=== PATIENT | male | born 1970 | race Two or more races ===

== ENCOUNTER 2024-12-12 09:16 | Inpatient (IN) | payer OTHER ==
[~2024-12-12] VITALS: Ht 162.6 cm; Wt 99.8 kg
--- NOTE | 2024-12-12 10:00 | NUR ---
PACIENTE EN COMPANIA DE ESPOSA SE PRESENTA A ER POR DOLOR EN EXTREMIDADES INFERIORES, PTE RECIENTEMENTE PRESENTA LACERACIONES EN AMBAS PIERNAS, LAS MISMAS SE OBERVAN EDEMATOSAS, FRIA AL TACTO Y DRENANDO LIQUIDO INTERSTICIAL. EL MISMO CON HX DE FALLO CARDIACO PRESENTA FALTA DE AIRE CON SAT 97%. SE MIDEN SIGNOS VITALES, SE PRESENTA A ALLY FERRO LA CUAL REFIERE QUE SEA ACOMODADO EN AREA DE OBSERVACION
[2024-12-12] MEDS ORDERED: DIPHENHYDRAMINE HCL 50 MG/ML VIAL 1ML ONE (10:56)
[2024-12-12] MEDS ORDERED: CEFTRIAXONE SODIUM 2,000 MG VIAL ONE (10:57)
[2024-12-12] MEDS ORDERED: METHYLPREDNISOLONE SOD SUCC 40 MG VIAL ONE (10:57)
[2024-12-12] MEDS ORDERED: DIPHENHYDRAMINE HCL 50 MG/ML VIAL 1ML IV ONE (11:00)
[2024-12-12] MEDS ORDERED: CEFTRIAXONE SODIUM 2,000 MG VIAL IV ONE (11:00)
[2024-12-12] MEDS ORDERED: METHYLPREDNISOLONE SOD SUCC 40 MG VIAL IV ONE (11:00)
[2024-12-12 12:37] LABS: BASO % 0.5 % (0.1-1.2); EOS # 0.04 (0.04-0.54); EOS % 0.4 % (0.7-7.0); LYMPH # 3.58 (1.18-3.74); LYMPH % 32.8 % (19.3-53.1); MEAN PLATELET VOLUME 9.90 fl (9.4-12.4); MONO # 0.70 (0.24-0.82); MONO % 6.4 % (4.7-12.5); NEUT # 6.50 (1.56-6.13); NEUT % 59.5 % (34.0-71.1); RED CELL DISTRIBUTION WIDTH 18.7 % (11.6-14.4)
[2024-12-12 12:43] LABS: ERYTHROCYTE SEDIMENTATION RATE 9 mm/hr (0-20)
[2024-12-12 13:04] LABS: INR 1.28
[2024-12-12 13:14] LABS: BUN CREA RATIO 25.0 (7.0-25.0); CREATININE SERUM 1.32 mg/dL (0.70-1.30); GFR 56.74; GLUCOSE FASTING 91.0 mg/dL (65-100); OSMOLALITY SERUM 286.0 MOSM/KG (275-295)
[2024-12-12] MEDS ORDERED: ACETAMINOPHEN 325 MG TABLET PO PRN (17:00)
[2024-12-12] MEDS ORDERED: PIPERACILLIN/TAZOBACTAM SODIUM 2.25 GM in DEXTROSE 5 % IN WATER 50 ML IV SCH (18:00)
[2024-12-12] MEDS ORDERED: ACETAMINOPHEN 500 MG GEL..CAP PO PRN (19:00)
[2024-12-12 19:31] VITALS: BP 170/85
[2024-12-12 20:19] LABS: URINE APPEARANCE Clear; URINE BILIRRUBIN Negative (NEGATIVE); URINE BLOOD Large; URINE COLOR Dark Yellow; URINE GLUCOSE Negative (NEGATIVE); URINE KETONE Negative (NEGATIVE); URINE LEUKOCYTE Moderate; URINE NITRATE Negative; URINE PROTEIN 30 (NEGATIVE); URINE UROBILINOGEN 1.0 E.U./dl
[2024-12-12 20:24] LABS: URINE BACTERIA 497.9 uL (0.0-1933); URINE CAST 8.50 uL (0.0-1.40); URINE EPITHELIAL CELLS 15.0 uL (0.0-38.8); URINE WBC 129.8 uL (0.0-23.2)
[2024-12-12 20:48] LABS: TYPE CELLS SQUAMOUS; URINE MUCUS SCANT
[2024-12-12 20:49] LABS: URINE SPERM FEW
[2024-12-12] MEDS ORDERED: VANCOMYCIN HCL 1,000 MG VIAL IV SCH (21:00)
[2024-12-12] MEDS ORDERED: CARVEDILOL 6.25 MG TABLET PO SCH (21:00)
[2024-12-13 00:46] VITALS: BP 119/85; O2SAT 98
[2024-12-13 07:32] LABS: BUN CREA RATIO 24.0 (7.0-25.0); CHOL HDL RATIO 4.1 (0-5.0); CREATININE SERUM 1.47 mg/dL (0.70-1.30); GFR 50.11; GLUCOSE FASTING 122.0 mg/dL (65-100); HDL 30.0 mg/dl (40-60); LDL 79.0 mg/dl (0-130); OSMOLALITY SERUM 295.0 MOSM/KG (275-295); TSH 0.621 uIU/mL (0.358-3.74); VLDL 13.0 (0-39)
[2024-12-13 08:53] VITALS: BP 90/62; O2SAT 98
[2024-12-13] MEDS ORDERED: SPIRONOLACTONE 25 MG TABLET PO SCH (09:00)
[2024-12-13] MEDS ORDERED: LOSARTAN POTASSIUM 25 MG TABLET PO SCH (09:00)
[2024-12-13] MEDS ORDERED: PANTOPRAZOLE SODIUM 40 MG/VIAL VIAL IV SCH (09:00)
[2024-12-13] MEDS ORDERED: ENOXAPARIN SODIUM 40 MG/0.4 ML SYRINGE SUBCUTANEO SCH (09:00)
[2024-12-13 13:30] VITALS: O2SAT 90
[2024-12-13] MEDS ORDERED: CEFEPIME HCL 2,000 MG VIAL IV SCH (17:00)
[2024-12-13 17:18] VITALS: O2SAT 97
[2024-12-13 17:44] VITALS: BP 106/80
[2024-12-13 22:09] VITALS: O2SAT 99
[2024-12-14] VITALS (9 sets, daily range): BP systolic 90–139; BP diastolic 50–85; O2SAT 97–98
[2024-12-14] MEDS ORDERED: VANCOMYCIN HCL 5 MG/ML REDILUIDO IV SCH (09:00)
[2024-12-14] MEDS ORDERED: AMIODARONE HCL 500 ML IV SCH (12:45)
[2024-12-14] MEDS ORDERED: CARVEDILOL 12.5 MG TABLET PO SCH (17:00)
[2024-12-14] MEDS ORDERED: APIXABAN 5 MG TABLET PO SCH (17:00)
[2024-12-14] MEDS ORDERED: AMIODARONE HCL 200 MG TABLET PO SCH (21:00)
[2024-12-15] VITALS (9 sets, daily range): BP systolic 95–99; BP diastolic 50–60; O2SAT 97–99
[2024-12-15] MEDS ORDERED: CARVEDILOL 25 MG TABLET PO SCH (09:00)
[2024-12-15] MEDS ORDERED: PANTOPRAZOLE SODIUM 40 MG TABLET.DR PO SCH (09:00)
[2024-12-15] MEDS ORDERED: SODIUM HYPOCHLORITE 1OZ TOP SCH ×2 (11:09→13:00)
[2024-12-15] MEDS ORDERED: AMINO ACIDS/PROTEIN HYDROLYS 30 ML BLIST.PACK PO SCH (17:00)
[2024-12-16] VITALS (8 sets, daily range): BP systolic 88–123; BP diastolic 51–77; O2SAT 95–99
[2024-12-16 08:38] LABS: BASO % 0.2 % (0.1-1.2); EOS # 0.10 (0.04-0.54); EOS % 1.0 % (0.7-7.0); LYMPH # 2.00 (1.18-3.74); LYMPH % 20.4 % (19.3-53.1); MEAN PLATELET VOLUME 10.90 fl (9.4-12.4); MONO # 0.75 (0.24-0.82); MONO % 7.6 % (4.7-12.5); NEUT # 6.89 (1.56-6.13); NEUT % 70.2 % (34.0-71.1); RED CELL DISTRIBUTION WIDTH 17.6 % (11.6-14.4)
[2024-12-16 09:13] LABS: ALT/SGPT 32.0 U/L (12-78); AST/SGOT 29.0 U/L (15-37); BILIRUBIN TOTAL 1.1 mg/dL (0.3-1.2); BUN CREA RATIO 46.0 (7.0-25.0); CREATININE SERUM 0.91 mg/dL (0.70-1.30); GFR 87.15; GLOBULINA 3.0 G/DL (2.4-3.5); GLUCOSE FASTING 76.0 mg/dL (65-100); OSMOLALITY SERUM 296.0 MOSM/KG (275-295)
[2024-12-16] MEDS ORDERED: MUPIROCIN 22 GM OINT..GM TUBE NASAL SCH (17:00)
[2024-12-17] VITALS (9 sets, daily range): BP systolic 94–130; BP diastolic 64–73; O2SAT 95–100
[2024-12-17] MEDS ORDERED: ALBUMIN HUMAN-25 0.25GM/ML (50ML) VIAL IV SCH (01:00)
[2024-12-17] MEDS ORDERED: ALBUMIN HUMAN 100 ML VIAL IV SCH (09:00)
[2024-12-17] MEDS ORDERED: VANCOMYCIN HCL 5 MG/ML REDILUIDO IV SCH (09:00)
[2024-12-17] MEDS ORDERED: CHLORHEXIDINE GLUCONATE 120 ML BOTTLE TOP SCH (09:00)
[2024-12-18] VITALS (9 sets, daily range): BP systolic 95–150; BP diastolic 69–85; O2SAT 95–99
[2024-12-18 06:13] LABS: BASO % 0.4 % (0.1-1.2); EOS # 0.16 (0.04-0.54); EOS % 1.8 % (0.7-7.0); LYMPH # 2.00 (1.18-3.74); LYMPH % 22.1 % (19.3-53.1); MEAN PLATELET VOLUME 10.70 fl (9.4-12.4); MONO # 0.64 (0.24-0.82); MONO % 7.1 % (4.7-12.5); NEUT # 6.09 (1.56-6.13); NEUT % 67.3 % (34.0-71.1); RED CELL DISTRIBUTION WIDTH 17.7 % (11.6-14.4)
[2024-12-18 06:53] LABS: ALT/SGPT 46.0 U/L (12-78); AST/SGOT 34.0 U/L (15-37); BILIRUBIN TOTAL 1.79 mg/dL (0.3-1.2); BUN CREA RATIO 34.0 (7.0-25.0); CREATININE SERUM 1.14 mg/dL (0.70-1.30); GFR 67.19; GLOBULINA 3.2 G/DL (2.4-3.5); GLUCOSE FASTING 98.0 mg/dL (65-100); OSMOLALITY SERUM 296.0 MOSM/KG (275-295)
[2024-12-18] MEDS ORDERED: ALBUMIN HUMAN 0.25GM/ML (50ML) VIAL IV SCH (09:00)
[2024-12-18] MEDS ORDERED: MEROPENEM 500 MG/VIAL VIAL IV SCH (18:00)
[2024-12-19] VITALS (9 sets, daily range): BP systolic 92–109; BP diastolic 63–79; O2SAT 92–100
[2024-12-19] MEDS ORDERED: SILVER SULFADIAZINE 50 GM JAR TOP SCH (11:24)
[2024-12-20] VITALS (9 sets, daily range): BP systolic 90–107; BP diastolic 60–69; O2SAT 94–100
[2024-12-20] MEDS ORDERED: SACUBITRIL/VALSARTAN 1 EACH TABLET PO SCH (17:00)
[2024-12-20] MEDS ORDERED: VANCOMYCIN HCL 1,000 MG VIAL IV SCH (21:00)
[2024-12-21 01:09] VITALS: O2SAT 98
[2024-12-21 03:09] VITALS: BP 93/67; O2SAT 98
[2024-12-21 05:22] VITALS: O2SAT 95
[2024-12-21 06:27] LABS: BASO % 0.8 % (0.1-1.2); EOS # 0.13 (0.04-0.54); EOS % 1.3 % (0.7-7.0); LYMPH # 2.08 (1.18-3.74); LYMPH % 20.2 % (19.3-53.1); MEAN PLATELET VOLUME 11.30 fl (9.4-12.4); MONO # 0.97 (0.24-0.82); MONO % 9.4 % (4.7-12.5); NEUT # 6.91 (1.56-6.13); NEUT % 67.0 % (34.0-71.1); RED CELL DISTRIBUTION WIDTH 17.8 % (11.6-14.4)
[2024-12-21 06:46] LABS: ALT/SGPT 38.0 U/L (12-78); AST/SGOT 27.0 U/L (15-37); BILIRUBIN TOTAL 1.8 mg/dL (0.3-1.2); BUN CREA RATIO 42.0 (7.0-25.0); CREATININE SERUM 0.74 mg/dL (0.70-1.30); GFR 110.64; GLOBULINA 3.1 G/DL (2.4-3.5); GLUCOSE FASTING 108.0 mg/dL (65-100); OSMOLALITY SERUM 290.0 MOSM/KG (275-295)
[2024-12-21 09:11] VITALS: BP 94/69; O2SAT 97; O2SAT 99
[2024-12-21 09:37] VITALS: O2SAT 99
[2024-12-21] MEDS ORDERED: ELIQUIS5 MG PO (11:52)
[2024-12-21] MEDS ORDERED: AMIODARONE HCL200 MG PO (11:53)
[2024-12-21] MEDS ORDERED: CARVEDILOL25 MG PO (11:53)
[2024-12-21] MEDS ORDERED: DAPAGLIFLOZIN5 MG PO (11:54)
[2024-12-21] MEDS ORDERED: ENTRESTO 24 MG1 EACH PO (11:54)
[2024-12-21] MEDS ORDERED: SPIRONOLACTONE25 MG PO (11:54)
[2024-12-21] MEDS ORDERED: FUROSEMIDE40 MG PO (11:54)
[2024-12-21] MEDS ORDERED: SILVER SULFADIA50 GM TOP (11:56)
[2024-12-21] MEDS ORDERED: MUPIROCIN22 GM NASAL (11:57)
[2024-12-21] MEDS ORDERED: LEVOFLOXACIN750 MG PO (11:58)
[2024-12-21 13:10] VITALS: O2SAT 100
[2024-12-22] MEDS ORDERED: AMINO ACIDS/PROTEIN HYDROLYS 30 ML BLIST.PACK PO SCH (17:00)
== END 2024-12-21 16:08 | disposition home or self-care (01) | DRG 271 ==
LOC: ER 09:16 → SEC-K 17:15 → MEDJ 17:15
PROVIDERS: General Practice; Internal Medicine; Internal Medicine Infectious Disease; ADMIT Internal Medicine; ATTEND Internal Medicine
PROC: B246ZZZ Ultrasonography of Right and Left Heart (ICD-10-PCS; 2024-12-12)
PROC: B54DZZZ Ultrasonography of Bilateral Lower Extremity Veins (ICD-10-PCS; 2024-12-12)
PROC: B44HZZZ Ultrasonography of Bilateral Lower Extremity Arteries (ICD-10-PCS; 2024-12-12)
PROC: 0JBN0ZZ Excision of Right Lower Leg Subcutaneous Tissue and Fascia, Open Approach (ICD-10-PCS; 2024-12-13)
PROC: 0JBP0ZZ Excision of Left Lower Leg Subcutaneous Tissue and Fascia, Open Approach (ICD-10-PCS; 2024-12-13)
PROC: 4A12X4Z Monitoring of Cardiac Electrical Activity, External Approach (ICD-10-PCS; 2024-12-13)
PROC: X2U4079 Supplement Coronary Artery/Arteries with Vein Graft Extraluminal Support Device(s), Open Approach, New Technology Group 9 (ICD-10-PCS; principal; 2024-12-16)
PROC: 0JBN0ZZ Excision of Right Lower Leg Subcutaneous Tissue and Fascia, Open Approach (ICD-10-PCS; 2024-12-20)
PROC: 0JBP0ZZ Excision of Left Lower Leg Subcutaneous Tissue and Fascia, Open Approach (ICD-10-PCS; 2024-12-20)
DX: I50.23 Acute on chronic systolic (congestive) heart failure (principal); I13.0 Hypertensive heart and chronic kidney disease with heart failure and stage 1 through stage 4 chronic kidney disease, or unspecified chronic kidney disease; I48.20 Chronic atrial fibrillation, unspecified; L97.819 Non-pressure chronic ulcer of other part of right lower leg with unspecified severity; I96 Gangrene, not elsewhere classified; J90 Pleural effusion, not elsewhere classified; N17.9 Acute kidney failure, unspecified; L02.416 Cutaneous abscess of left lower limb; I83.018 Varicose veins of right lower extremity with ulcer other part of lower leg; I83.028 Varicose veins of left lower extremity with ulcer other part of lower leg; I27.20 Pulmonary hypertension, unspecified; C60.9 Malignant neoplasm of penis, unspecified; N18.9 Chronic kidney disease, unspecified; E78.5 Hyperlipidemia, unspecified; Z79.01 Long term (current) use of anticoagulants